=== PATIENT | female | born 1975 | race Caucasian/White ===

== ENCOUNTER → 2017-04-07 | Outpatient (CLI) | payer BC ==
[~2017-04-07] MED LIST: CLEOCIN HCL300 MG PO; ZOFRAN ODT4 MG PO
== END ==
LOC: MC.RAD 14:07
DX: Z12.31 Encounter for screening mammogram for malignant neoplasm of breast (principal)

== ENCOUNTER → 2018-07-11 | Outpatient (CLI) | payer BC | LOC: MC.RAD 10:35 | DX: Z12.31 Encounter for screening mammogram for malignant neoplasm of breast (principal); N63.10 Unspecified lump in the right breast, unspecified quadrant ==

== ENCOUNTER → 2018-07-13 | Outpatient (CLI) | payer BC | LOC: MC.RAD 07:27 | DX: N63.13 Unspecified lump in the right breast, lower outer quadrant (principal) ==